=== PATIENT | female | born 1980 | race Caucasian/White ===

== ENCOUNTER → 2017-09-27 | Outpatient (REF) | payer BC | LOC: M LAB REF 22:22 | DX: J11.1 Influenza due to unidentified influenza virus with other respiratory manifestations (principal) | CPT/HCPCS: 87804 ==

== ENCOUNTER 2017-11-30 06:34 | Day surgery (SDC) | payer BC ==
[~2017-11-30 06:34] MED LIST: ACETAMINOPHEN 325 MG TAB PO
[2017-11-30] MEDS ORDERED: fentaNYL 100 MCG/2 ML INJECTION (J3010) As Ordered (06:39)
[2017-11-30] MEDS ORDERED: MIDAZOLAM INJ 2 MG/2 ML VIAL (J2250) As Ordered (06:39)
[2017-11-30] MEDS: TROPICAMIDE 1% OPHTH SOLN 2ML OD (07:17)
[2017-11-30] MEDS: PROPARACAINE 0.5% OPHTH SOL 15ML OD (07:17)
[2017-11-30] MEDS: PHENYLEPHRINE 2.5% OPHTH SOL 2ML OD (07:17)
[2017-11-30] MEDS: OFLOXACIN 0.3 % (OCUFLOX) OPTH SOL 5ML OD (07:18)
[2017-11-30 07:55] LABS: CONTROL LINE HCG INT CTR LINE PRESENT; HCG, SERUM QUALITATIVE NEGATIVE (NEGATIVE)
[2017-11-30] MEDS: POVIDONE-IODINE 5% OPHTH PREP SOL 30ML As Ordered (08:02)
[2017-11-30] MEDS: BALANCED SALT IRRIGATION SOLUTION 500ML BAG (FOR OR EYE MACHINE) As Ordered (08:09)
[2017-11-30] MEDS: LIDOCAINE 0.75%/EPINEPHRINE 0.025% IN BSS 1ML SYR INTRACAMERAL (OR ONLY) As Ordered (08:09)
[2017-11-30] MEDS: DUOVISC (0.50ML VISCOAT/0.55ML PROVISC) OPHTH KIT As Ordered (08:09)
[2017-11-30] MEDS: CEFUROXIME 1MG/0.1ML INTRACAMERAL INJ As Ordered (08:10)
[2017-11-30] MEDS ORDERED: TRIMETHOBENZAMIDE 300 MG CAP PO (08:30)
[2017-11-30] MEDS: AcetaZOLAMIDE 500 MG ER CAP PO (08:35)
[2017-11-30] MEDS: ACETAMINOPHEN TAB 650MG DOSE (2X325MG) PO (08:35)
[2017-11-30] MEDS ORDERED: ONDANSETRON 4MG/2ML VIAL (J2405) IV (08:45)
[2017-11-30] MEDS: PROPARACAINE 0.5% OPHTH SOL 15ML OS (09:00)
== END 2017-11-30 09:25 | disposition home or self-care (01) ==
LOC: M SDC 06:34
DX: H25.11 Age-related nuclear cataract, right eye (principal); J45.909 Unspecified asthma, uncomplicated; Z72.0 Tobacco use; Z87.442 Personal history of urinary calculi
CPT/HCPCS: 66984

== ENCOUNTER → 2018-04-30 | Outpatient (CLI) | payer BC | LOC: M WUC 18:51 | DX: M79.675 Pain in left toe(s) (principal) | CPT/HCPCS: 73660 ==

== ENCOUNTER 2018-05-17 12:28 | Day surgery (SDC) | payer BC ==
[~2018-05-17 12:28] MED LIST changes: -ACETAMINOPHEN 325 MG TAB PO; +MIDAZOLAM INJ 2 MG/2 ML VIAL (J2250) As Ordered
[2018-05-17] MEDS ORDERED: SCOPOLAMINE 1MG TRANSDERMAL PATCH As Ordered (12:52)
[2018-05-17] MEDS ORDERED: ONDANSETRON 4MG/2ML VIAL (J2405) As Ordered (12:53)
[2018-05-17 13:07] LABS: CONTROL LINE UCG INT CTR LINE PRESENT; URINE PREG TEST NEGATIVE (NEGATIVE)
[2018-05-17] MEDS: TROPICAMIDE 1% OPHTH SOLN 2ML OS (13:13)
[2018-05-17] MEDS: PROPARACAINE 0.5% OPHTH SOL 15ML OS (13:14)
[2018-05-17] MEDS: OFLOXACIN 0.3 % (OCUFLOX) OPTH SOL 5ML OS (13:14)
[2018-05-17] MEDS: PHENYLEPHRINE 2.5% OPHTH SOL 2ML OS (13:14)
[2018-05-17] MEDS: ONDANSETRON 4MG/2ML VIAL (J2405) IV (13:15)
[2018-05-17] MEDS: SCOPOLAMINE 1MG TRANSDERMAL PATCH TOP (13:21)
[2018-05-17] MEDS ORDERED: MIDAZOLAM INJ 2 MG/2 ML VIAL (J2250) As Ordered (13:53)
[2018-05-17] MEDS: DUOVISC (0.50ML VISCOAT/0.55ML PROVISC) OPHTH KIT As Ordered (13:55)
[2018-05-17] MEDS: CEFUROXIME 1MG/0.1ML INTRACAMERAL INJ As Ordered (13:55)
[2018-05-17] MEDS: LIDOCAINE 0.75%/EPINEPHRINE 0.025% IN BSS 1ML SYR INTRACAMERAL (OR ONLY) As Ordered (13:55)
[2018-05-17] MEDS: BALANCED SALT IRRIGATION SOLUTION 500ML BAG (FOR OR EYE MACHINE) As Ordered (13:55)
[2018-05-17] MEDS: POVIDONE-IODINE 5% OPHTH PREP SOL 30ML As Ordered (13:55)
[2018-05-17] MEDS ORDERED: fentaNYL 100 MCG/2 ML INJECTION (J3010) As Ordered (13:56)
[2018-05-17] MEDS ORDERED: dexameTHASONE 4 MG/ML 1ML VIAL (J1100) As Ordered ×2 (14:11)
[2018-05-17] MEDS ORDERED: METOCLOPRAMIDE INJ 10MG/2ML VIAL (J2765) As Ordered (14:13)
== END 2018-05-17 16:00 | disposition home or self-care (01) ==
LOC: M SDC 16:00
DX: H25.12 Age-related nuclear cataract, left eye (principal); J45.909 Unspecified asthma, uncomplicated; F17.210 Nicotine dependence, cigarettes, uncomplicated; Z79.899 Other long term (current) drug therapy
CPT/HCPCS: 66984

== ENCOUNTER → 2019-09-08 | Outpatient (CLI) | payer BC ==
[~2019-09-08] MED LIST changes: +AMOX-CLAV; +CHILCHW6 PO; +EYE5SOL OP; +IBUP200C25 PO; -MIDAZOLAM INJ 2 MG/2 ML VIAL (J2250) As Ordered; +NAPR-885 PO
[2019-09-08 16:25] LABS: APPEARANCE, URINE TURBID (CLEAR); BACTERIA, URINE AUTO NEGATIVE (NEGATIVE); BILIRUBIN, URINE AUTO NEGATIVE (NEGATIVE); BLOOD, URINE BLOOD 1+ (NEGATIVE); COLOR, URINE YELLOW (YELLOW); GLUCOSE, URINE (UA) AUTO NEGATIVE (NEGATIVE); KETONE, URINE AUTO TRACE mg/dL (NEGATIVE); LEUKOCYTE ESTERASE, URINE AUTO NEGATIVE (NEGATIVE); MUCUS, URINE SMALL (NEGATIVE); NITRITE, URINE AUTO NEGATIVE (NEGATIVE); PROTEIN, URINE AUTO 1+ mg/dL (NEGATIVE); RBC, URINE AUTO 11 /HPF (0-3); SPECIFIC GRAVITY URINE AUTO 1.026 (1.002-1.035); SQUAMOUS EPITHELIAL CELL UR AU 6 /HPF (0-6); UROBILINOGEN, URINE AUTO 0.2 mg/dL (0.0-2.0); WBC, URINE AUTO 1 /HPF (0-3)
[2019-09-08 16:26] LABS: BASO % 0.5 % (0.0-1.0); EOS # 0.4 10^3/uL (0.0-0.5); EOS % 4.4 % (0.0-3.0); HEMATOCRIT 42.2 % (36.0-47.0); HEMOGLOBIN 13.5 g/dl (12.0-15.5); LYMPH # 2.2 10^3/uL (1.5-5.0); LYMPH % 26.6 % (24.0-44.0); MEAN CORPUSCULAR HEMOGLOBIN 30.5 pg (27.0-33.0); MEAN CORPUSCULAR VOLUME 95.5 fl (80.0-96.0); MONO # 0.5 10^3/uL (0.0-0.8); MONO % 6.1 % (0.0-5.0); NEUTROPHILS # 5.2 10^3/uL (1.5-8.5); NEUTROPHILS % 62.2 % (36.0-66.0); PLATELET COUNT, AUTOMATED 289 10^3/uL (150-450); RED BLOOD COUNT 4.42 10^6/uL (4.00-5.40); WHITE BLOOD COUNT 8.3 10^3/uL (4.0-10.0)
[2019-09-08 16:40] LABS: BLOOD UREA NITROGEN 12 MG/DL (7-18); CALCIUM LEVEL 8.2 MG/DL (8.5-10.1); CARBON DIOXIDE LEVEL 26 MEQ/L (21-32); CHLORIDE LEVEL 106 MEQ/L (98-107); CREATININE FOR GFR 0.54 MG/DL (0.55-1.30); GLOMERULAR FILTRATION RATE > 60.0 (>60); GLUCOSE, FASTING 91 MG/DL (70-100); SODIUM LEVEL 140 MEQ/L (136-145)
== END ==
LOC: M WUC 12:30
PROVIDERS: ATTEND Family Medicine
DX: F41.0 Panic disorder [episodic paroxysmal anxiety] (principal)

== ENCOUNTER → 2019-09-12 | Outpatient (CLI) | payer BC ==
--- NOTE | 2019-09-13 01:58 | REP ---
Clinical: Effusion Technique: AP, lateral, bilateral oblique and sunrise views left knee . Findings: The osseous structures and joint spaces are intact and normal. There is no evidence for acute fracture or dislocation. No joint effusion is appreciated. Surrounding soft tissues are unremarkable. No subcutaneous emphysema or radiodense foreign body. Impression: Normal examination. No acute fracture or dislocation. Electronically Signed by Timothy Lima MD 09/13/2019 01:50 A
--- NOTE | 2019-09-13 02:49 | REP ---
Clinical: Prepatellar effusion. Technique: Real time fabian scale and color evaluation using curved array transducer. Findings: Directed ultrasound examination overlying the patellar region demonstrates a nonspecific complex ovoid collection measuring 2.7 x 1.1 x 2.8 cm. Impression: Nonspecific complex collection in the prepatellar subcutaneous tissue. Correlation with history is recommended to exclude hematoma possibly related to prior trauma. Electronically Signed by Timothy Lima MD 09/13/2019 02:40 A
== END ==
LOC: M LRY 14:19
PROVIDERS: ATTEND Family Medicine
DX: M25.462 Effusion, left knee (principal)

== ENCOUNTER → 2020-06-23 | Outpatient (CLI) | payer BC ==
[~2020-06-23] MED LIST changes: -EYE5SOL OP; +TETR15DR16 OP
[2020-06-23 20:31] LABS: THYROID STIMULATING HORMONE 6.65 uIU/ML (0.358-3.740)
[2020-06-23 20:34] LABS: THYROID PEROXIDASE ANTIBODY 951.1 U/ML (<60.0)
[2020-06-24 12:31] LABS: FREE T4 0.76 NG/DL (0.76-1.46)
== END ==
LOC: M WUC 17:20
PROVIDERS: ATTEND Family Medicine
DX: E03.9 Hypothyroidism, unspecified (principal)

== ENCOUNTER → 2022-04-06 | Outpatient (CLI) | payer OTHER ==
[~2022-04-06] MED LIST changes: -TETR15DR16 OP; +TETR15DR2 OP
[2022-04-06 21:13] LABS: FREE T4 0.72 NG/DL (0.76-1.46); THYROID STIMULATING HORMONE 5.45 uIU/ML (0.358-3.740)
== END ==
LOC: M WUC 14:35
PROVIDERS: ATTEND Family Medicine
DX: E03.8 Other specified hypothyroidism (principal); E06.3 Autoimmune thyroiditis

== ENCOUNTER → 2022-06-17 | Outpatient (CLI) | payer OTHER | LOC: M SOG 08:04 | PROVIDERS: ATTEND Orthopaedic Surgery | DX: M48.02 Spinal stenosis, cervical region (principal) ==

== ENCOUNTER → 2022-06-24 | Outpatient (CLI) | payer OTHER | LOC: M SOG 08:01 | PROVIDERS: ATTEND Orthopaedic Surgery | DX: M48.02 Spinal stenosis, cervical region (principal) ==

== ENCOUNTER → 2022-08-02 | Outpatient (CLI) | payer OTHER | LOC: M PLAIMG 14:20 | PROVIDERS: ATTEND Orthopaedic Surgery | DX: M47.812 Spondylosis without myelopathy or radiculopathy, cervical region (principal) ==

== ENCOUNTER → 2024-06-12 | Outpatient (REF) | payer OTHER ==
[~2024-06-12] MED LIST changes: +TETR15DR16 OP; -TETR15DR2 OP
== END ==
LOC: M LAB REF 12:05
PROVIDERS: ATTEND Physician Assistant
DX: B34.9 Viral infection, unspecified (principal)

== ENCOUNTER → 2025-04-22 | Outpatient (REF) | payer OTHER | LOC: M SFHCLERA 11:54 | DX: Z53.9 Procedure and treatment not carried out, unspecified reason (principal) ==

== ENCOUNTER → 2025-04-30 | Outpatient (CLI) | payer OTHER ==
[2025-04-30 14:16] LABS: BASO # 0.1 10^3/uL (0.0-0.2); BASO % 0.9 % (0.0-1.0); EOS # 0.2 10^3/uL (0.0-0.5); EOS % 3.5 % (0.0-3.0); LYMPH # 2.1 10^3/uL (1.5-5.0); LYMPH % 32.8 % (24.0-44.0); MONO # 0.5 10^3/uL (0.0-0.8); MONO % 8.3 % (2.0-8.0); NEUTROPHILS # 3.4 10^3/uL (1.5-8.5); NEUTROPHILS % 54.2 % (36.0-66.0); PLATELET COUNT, AUTOMATED 333 10^3/uL (150-450)
[2025-04-30 14:26] LABS: ESTIMATED AVERAGE GLUCOSE 103.0 MG/DL (60-110)
[2025-04-30 14:58] LABS: ALT/SGPT 16 U/L (7.0-40); AST/SGOT 19 U/L (<34); CALCIUM LEVEL 9.1 MG/DL (8.5-10.1); CARBON DIOXIDE LEVEL 28 MMOL/L (20-31); CHLORIDE LEVEL 102 MMOL/L (98-107); CHOLESTEROL LEVEL 191 MG/DL (<200); CHOLESTEROL RISK RATIO 3.00 (<5); CREATININE FOR GFR 0.63 MG/DL (0.55-1.30); GLOMERULAR FILTRATION RATE > 90.0 (>58); LDL CHOLESTEROL 107.4 MG/DL (<100); LUTEINIZING HORMONE 59.8 mIU/ML; NON-HDL-C 127.4 MG/DL; POTASSIUM SERUM 4.2 MMOL/L (3.5-5.1); PROLACTIN 8.07 NG/ML; SODIUM LEVEL 140 MMOL/L (136-145); TRIGLYCERIDES LEVEL 100 MG/DL (<150)
[2025-05-05 15:48] LABS: TESTOSTERONE FREE (DIRECT) 2.5 pg/mL (0.1-6.4); TESTOSTERONE TOTAL FOR T&D 20.0 ng/dL (2-45)
[2025-05-06 18:23] LABS: ESTROGENS TOTAL 37.0 pg/mL
== END ==
LOC: M WUC 12:37
DX: R23.2 Flushing (principal); E78.5 Hyperlipidemia, unspecified